=== PATIENT | female | born 1950 | race Caucasian/White ===

== ENCOUNTER → 2016-10-20 | Outpatient (CLI) | payer MEDICARE, BC ==
--- NOTE | 2016-10-20 16:51 | CONS ---
DATE OF CONSULTATION: REASON FOR CONSULTATION: LINOEdith Pan is 66, morbidly obese, with known history of obstructive sleep apnea with an AHI of 15 based on a previous polysomnogram that was done in 2011. The patient was treated with auto CPAP at a pressure minimum of 4, pressure maximum of 7, and she is coming in to see me. I have not seen this patient for almost 4 years. I noted that she has gained around 22 pounds since her last CPAP titration, and her body weight is up to 235. She is still using the same CPAP unit that was given to her earlier. She is utilizing a Damico FX extra-small mask, and her DME is [facility]. Based on the compliance data on the CPAP machine, the patient's average CPAP use is 8 hours and 56 minutes. Her AHI while on treatment is down to 3.6. Her P90 pressure is 6.7. She is going to bed at around midnight and wakes up around 7 a.m. in the morning. No snoring while on CPAP therapy. She still has some occasional nocturia. No major hypersomnia or sleepiness during the day. At times she is having some postnasal drainage, for which she is utilizing Flonase nasal spray. PAST MEDICAL HISTORY: 1. Obstructive sleep apnea, details as discussed above. 2. Obesity. 3. Hyperlipidemia. 4. Chronic back pain. 5. Degenerative arthritis. 6. Postnasal drainage, likely allergic, maintained on Flonase. Past surgical history includes: 1. . 2. Arthroscopic knee surgery. 3. Ankle surgery. 4. Wrist surgery. 5. Carpal tunnel release. 6. Cataract surgery. SOCIAL HISTORY: The patient is a nonsmoker. No history of alcohol. No history of IV drugs. Outpatient medication list includes: 1. Flonase nasal spray. 2. Baclofen. 3. Simvastatin. 4. Hydrocodone/acetaminophen 5/325. 5. Tramadol. FAMILY HISTORY: Negative for obstructive sleep apnea. REVIEW OF SYSTEMS: Twelve-point review of systems was done. Positive findings were all mentioned above in the history of present illness. BP is 154/58, pulse 70, respirations 16, temperature 97.0. Weight is 235. Height is 5 feet 2 inches. Neck size is 16-1/2 inches. Saturation 94% on room air. GENERAL APPEARANCE: Obese, calm, comfortable. HEENT: Short neck, crowding of posterior pharynx. No goiter or neck masses. LUNGS: Clear to auscultation. HEART: Sounds are regular rate and rhythm. Normal S1, S2. No S3. No S4. No murmurs. ABDOMEN: Soft, nontender. No organomegaly. EXTREMITIES: No edema. No cyanosis or clubbing. IMPRESSION: 1. Obstructive sleep apnea with a baseline AHI of 15 based on a sleep study from 2011. The patient is still receiving auto CPAP therapy with a pressure maximum of 7, pressure minimum of 4, and her treatment remains quite successful. 2. Obesity with a body mass index of 35.5. 3. Chronic degenerative arthritis with pain involving the knees, back, and various other large joints. 4. Hyperlipidemia. 5. Postnasal drainage, maintained on Flonase. PLAN: Treatment is successful. No need for adjustments on her CPAP pressure or settings at this point. Encourage weight loss. Encourage implementing good sleep hygiene measures. Tight control of cardiovascular risk factors. Renew her CPAP supplies. Suggest an AirFit P10 mask instead of the Damico FX. Continue Flonase for postnasal drainage. See me back in a year's time in followup; earlier if needed.
== END | disposition home or self-care (01) ==
LOC: SLEEP 14:02
PROVIDERS: ATTEND Internal Medicine Critical Care Medicine
DX: G47.33 Obstructive sleep apnea (adult) (pediatric) (principal); E66.9 Obesity, unspecified; Z68.35 Body mass index [BMI] 35.0-35.9, adult; M17.0 Bilateral primary osteoarthritis of knee; M47.896 Other spondylosis, lumbar region; G89.4 Chronic pain syndrome; M54.9 Dorsalgia, unspecified; E78.5 Hyperlipidemia, unspecified; R09.82 Postnasal drip; Z79.899 Other long term (current) drug therapy
CPT/HCPCS: 99211

== ENCOUNTER → 2017-12-14 | Outpatient (CLI) | payer MEDICARE, BC ==
--- NOTE | 2017-12-14 16:48 | PN ---
PROGRESS NOTE SLEEP CENTER PROGRESS NOTE: This is a pleasant 67-year-old female patient coming in for an annual check. The patient is using her CPAP machine. She is using a DreamWear nose mask. Her average use is around 6.8 hours per night. She is using it more than 4 hours every night. She is still waking up alert and awake during the day. She has no specific complaints other than her increased back pain and back spasms which have affected her ability to sleep, and she is waking up frequently for that reason. She has an upcoming appointment with Dr. Lancaster. She is still benefitting from the CPAP treatment. Her sleep apnea is mild to moderate in severity with an AHI of 15. No other new complaints otherwise for now. REVIEW OF SYSTEMS: CONSTITUTIONAL: Negative for any weight loss or weight gain. She has a good appetite. No fever, chills or night sweats. No dysuria, frequency or urgency. No nausea, vomiting or diarrhea. No heartburn. No chest pain. No palpitations. No shortness of breath. No falls. No change in memory. No concentration changes. No sleepwalking or sleeptalking. No parasomnias noted. She has chronic allergic rhinitis with nasal congestion, postnasal drainage. Increased back pain, as mentioned above. She will be seeking pain control. PHYSICAL EXAMINATION: BP is 157/74, pulse 78, respiration 16, temperature 97.6, saturation 96% on room air. Weight is 236. Height is 5 feet 2 inches. BMI is 43. GENERAL APPEARANCE: Calm, comfortable. No acute distress. Head is atraumatic, normocephalic. Neck is short. Crowding of the posterior pharynx. There is no goiter or neck masses. LUNGS: Clear to auscultation. HEART: Heart sounds are regular rate and rhythm. Normal S1, S2. No S3, S4. No murmurs. ABDOMEN: Soft, nontender. No organomegaly. EXTREMITIES: No edema. No cyanosis or clubbing. NEUROLOGIC: Alert and oriented x3. No focal neurological deficits. PSYCHIATRIC: Negative for anxiety or depression. SKIN: Negative for any wounds or ulceration. IMPRESSION: 1. Obstructive sleep apnea, moderate in severity with an AHI of 15. The patient continues to receive successful CPAP therapy. She is on an auto CPAP and her P90 pressure is 6.8. She is very compliant and she continues to benefit from the treatment. 2. Increased back pain/spasm. 3. Sleep fragmentation related to pain. 4. Obesity; stable weight with a BMI of 43. 5. Hyperlipidemia. 6. Degenerative arthritis. PLAN: 1. Renew the patient's CPAP supplies. 2. Continue CPAP at the same settings. 3. Treatment has been successful. 4. Follow up with Dr. Lancaster regarding back pain. 5. See me back in a year's time, earlier if needed. MMODL / IJN: [id number] /
== END ==
LOC: SLEEP 13:55
PROVIDERS: ATTEND Internal Medicine Critical Care Medicine
DX: Z53.9 Procedure and treatment not carried out, unspecified reason (principal)

== ENCOUNTER → 2018-02-15 | Outpatient (CLI) | payer MEDICARE, BC ==
--- NOTE | 2018-02-15 17:45 | PN ---
PROGRESS NOTE 67-year-old female patient coming to see me in followup. The patient was able to obtain a new CPAP machine. New CPAP machine is an APap which is set at admission minimum pressure of 4 and maximum pressure of 7. She is benefitting from the treatment and she is happy. However, she is still having some residual apneas. No major hypersomnia or sleepiness during the day and she claims to benefit from the treatment. However based on the compliance data, the patient is still having some residual apneas with an AHI of 11 while on treatment. Her leak factor is 14 L/minute. She is averaging 9 hours of APap use per night and her APap use for more than 4 hours is 100%. No recent weight gain or weight loss. No other complaints otherwise for now. REVIEW OF SYSTEMS: 12-point review of system was done. Positive findings are mentioned above in the history of present illness. PHYSICAL EXAMINATION: BP is 157/82, pulse 72, respirations 16, temperature 97.0. Weight is 240, temperature 97.9. General appearance: Calm and comfortable. Head is atraumatic, normocephalic. Neck short supple, crowding of posterior pharynx. There is no goiter or neck masses. LUNGS: Clear to auscultation. HEART: Sounds regular rate and rhythm. Normal S1, S2. No S3, S4. No murmurs. ABDOMEN: Soft, nontender. No organomegaly. EXTREMITIES: No edema. No cyanosis or clubbing. IMPRESSION: 1. Obstructive sleep apnea, moderate in severity. AHI of 15. Currently the patient has APap and she has demonstrated excellent clinical response and compliance. 2. Obesity with a BMI of 43. 3. Hyperlipidemia. 4. Degenerative arthritis. PLAN: 1. Increase APAP range to a minimum pressure of 4 and a maximum pressure of 12. 2. Monitor the AHI while in treatment and anticipate this number to drop below 5. 3. No evolution of central apneas based on the compliance data. 4. The patient is benefitting from the CPAP. 5. Encourage weight loss. 6. See me back in a few months' time for a followup. MMROSASL / BRYCEN: [id number] /
== END | disposition home or self-care (01) ==
LOC: SLEEP 14:11
PROVIDERS: ATTEND Internal Medicine Critical Care Medicine
DX: G47.33 Obstructive sleep apnea (adult) (pediatric) (principal); E66.9 Obesity, unspecified; E78.5 Hyperlipidemia, unspecified; M19.90 Unspecified osteoarthritis, unspecified site; Z99.89 Dependence on other enabling machines and devices; Z68.41 Body mass index [BMI] 40.0-44.9, adult

== ENCOUNTER → 2019-03-07 | Outpatient (CLI) | payer MEDICARE, BC ==
--- NOTE | 2019-03-07 20:00 | PN ---
PROGRESS NOTE 68-year-old female patient coming in for a compliancy check in followup regarding LINO treatment. The patient has moderate to severe LINO with an AHI of 15 and currently she is on APAP, minimum pressure 4, maximum pressure of 12. On today's evaluation, the patient continues to use her CPAP without any interruption. She has been averaging around 9.7 hours of CPAP use per night. She is leaking 19 L/minute and her AHI is down to 4.5, without any central apneas noted. Her treatment has been essentially successful. The average pressure utilized is around 10 cm of water. The patient's [place] score is down to 7. She has no specific complaints. She is utilizing CPAP machine without any interruption and she has not gained any weight. REVIEW OF SYSTEMS: Fourteen-point review of system was done and positive findings are mentioned above history of present illness. PHYSICAL EXAMINATION: BP is 126/79, pulse 78, respirations 16, temperature 97.0. Saturation 93% on room air. Height is 5 feet 2 inches, weight is 243, BMI 44.6. General appearance: Calm, comfortable. HEENT: Head is atraumatic, normocephalic. NECK: Supple. No JVD. No goiter or neck masses. LUNGS: Clear to auscultation. HEART: Sounds are regular rate and rhythm. Normal S1, S2. No murmurs. ABDOMEN: Soft, nontender. No organomegaly. EXTREMITIES: No edema. No cyanosis or clubbing. NEUROLOGIC: Alert and oriented x3. No focal neurological deficits. IMPRESSION: 1. Obstructive sleep apnea with an AHI of 15 currently on a APAP minimum of 4, maximum 12 with excellent clinical response and compliance. 2. Obesity with a BMI of 44.6. 3. Hypersomnia, recovered. 4. Hyperlipidemia. 5. Osteoarthritis. PLAN: 1. Continue APAP at the same setting. 2. Keep same mask interface. 3. Treatment is successful, see me back in a year's time in follow up, earlier if needed. MMODL / IJN: [id number] /
== END ==
LOC: SLEEP 14:53
PROVIDERS: ATTEND Internal Medicine Critical Care Medicine
DX: G47.33 Obstructive sleep apnea (adult) (pediatric) (principal); E66.9 Obesity, unspecified; E78.5 Hyperlipidemia, unspecified; M19.90 Unspecified osteoarthritis, unspecified site; Z99.89 Dependence on other enabling machines and devices; Z68.41 Body mass index [BMI] 40.0-44.9, adult

== ENCOUNTER → 2020-10-22 | Outpatient (CLI) | payer MEDICARE, BC ==
--- NOTE | 2020-10-22 15:00 | PN ---
PROGRESS NOTE This patient is 70 coming in for a 2 year followup regarding her obstructive sleep apnea. The patient has a moderately severe disease with an AHI of 15 and the patient is currently on an APAP, at a minimum pressure of 4 and maximum pressure of 12. Treatment remains extremely successful and the patient is very compliant to her treatment. She is going to bed and she takes sometimes little bit longer than an hour to fall asleep as the patient has significant amount of arthritis and she has difficulties in getting herself comfortable and situated. Ultimately, she has been averaging around 11 hours of CPAP use per night. She thinks that effectively she is sleeping somewhere between 8-9 hours. Her leak is in order of 6 L/minute and her AHI while on treatment is down to 3.0. Her CPAP use for more than 4 hours is 100%. She has been taking occasional naps during the day and she wears her CPAP during naps. She is using a DreamWear small-sized under the nose mask. Humidity level is 4. The patient has a ClimateLine. Weight is stable and is currently at 247. REVIEW OF SYSTEMS: Fourteen-point review of system was done and positive findings are mentioned in history of present illness. PHYSICAL EXAMINATION: VITAL SIGNS: BP is 141/69, pulse 68, respirations 16, temperature 98.2, saturation 95% on room air. Height is 5 feet 2 inches. Weight is 247. GENERAL APPEARANCE: Calm, comfortable. HEAD: Atraumatic, normocephalic. NECK: Supple. No JVD. No thrush. No goiter or neck masses. LUNGS: Clear to auscultation. No wheeze or rhonchi. HEART: Sounds are regular rate and rhythm. Normal S1, S2. No S3, no S4. No murmurs. ABDOMEN: Soft, nontender. No organomegaly. EXTREMITIES: No edema. No cyanosis or clubbing. IMPRESSION: 1. Obstructive sleep apnea, mild to moderate in severity AHI of 15, currently on APAP and treatment continues to be extremely successful. 2. Hypersomnia, recovered. 3. Obesity with a body mass index of 45.1 and a body weight of 247. 4. Degenerative arthritis. 5. Hyperlipidemia. PLAN: 1. Keep same pressure setting. 2. Continue same mask interface and the patient will refill on her DreamWear small- sized under the nose mask. 3. Continue optimizing sleep hygiene measures. 4. Continue pain control, especially her arthritic pain and the patient is taking pain killers including tramadol and baclofen. 5. See me back in the office in a year's time for followup for now her treatment is still successful. MMMATTEO / BRYCEN: [id number] /
== END | disposition home or self-care (01) ==
LOC: SLEEP 13:24
PROVIDERS: ATTEND Internal Medicine Critical Care Medicine
DX: G47.33 Obstructive sleep apnea (adult) (pediatric) (principal); M19.90 Unspecified osteoarthritis, unspecified site; E78.5 Hyperlipidemia, unspecified; E66.9 Obesity, unspecified; Z68.42 Body mass index [BMI] 45.0-49.9, adult; Z99.89 Dependence on other enabling machines and devices

== ENCOUNTER → 2022-03-10 | Outpatient (CLI) | payer MEDICARE, BC ==
--- NOTE | 2022-03-10 16:10 | P.PN ---
Subjective Progress Note Date: 03/10/22 A 71-year-old here patient coming in for an annual checkup regarding her obstructive sleep apnea. The patient is known to have moderately severe disease with an AHI of 15. The patient is currently using an APAP unit, and she has a ResMed 10 which is set at the pressure minimal 4 and a maximum of 15 , she is using a alegria fx Soren extra small size. She's been extremely compliant. She has issues with chronic pain. She takes a combination of tramadol and baclofen for pain control and arthritis. She has lost around 7 pounds since her last evaluation and current weight is down to 240. She takes hypertension medication and she was started on lisinopril recently. In terms of her CPAP compliantly, the patient has been very compliant is utilizing her machine every night. She has been averaging on 9.7 hours of CPAP use per night, and average pressure delivered vitamin she is around 9 cm of water. Her leak is in order of 22 L per minute. Her AHI while on treatment is down to 4.4. She is still having successful treatment. No issues while on the CPAP. Her main issues are arthritic pain and discomfort that she gets uncomfortable at night and she cannot get herself into a comfortable bela position. Nevertheless, for the most part, her sleep apnea as well treated and she is waking up refreshed and alert during the day. Objective - Exam BP is 127/72 with a pulse of 71 and respiration of 20 and the temperature 96.0 and the weight is 240 pounds with a body mass index of 44. The [place] score is at 11. Gen. appearance the patient is morbidly obese, comfortable likely distress The patient appeared well nourished and normally developed. Vital signs as documented. Head exam is unremarkable. No scleral icterus or corneal arcus noted. Neck is without jugular venous distension, thyromegaly, or carotid bruits. The patient has a Mallampati class IV. Carotid upstrokes are brisk bilaterally. Lungs are clear to auscultation and percussion. Cardiac exam reveals the PMI to be normally sized and situated. Rhythm is regular. First and second heart sounds normal. No murmurs, rubs or gallops. Abdominal exam reveals normal bowel sounds, no masses, no organomegaly and no aortic enlargement. Extremities are nonedematous and both femoral and pedal pulses are normal.Examination of the skin revealed no evidence of significant rashes, suspicious appearing nevi or other concerning lesions.Neurologically, the patient is awake and alert and the patient does not have any focal neurological deficit. Cranial nerves are essentially intact. Assessment and Plan Plan: Obstructive sleep apnea, AHI 15 and the patient has been adequately treated with APAP and the patient continues to be successfully treated for now Hypersomnia, currently inactive in stable Chronic arthritic pain maintained on a combination of tramadol and baclofen Hypertension Hyperlipidemia Morbid obesity with a body mass index of 44 Plan Keep the patient on a APAP mode pressure minimum of 4 and a maximal 15 Ordered the patient is alegria fx soren extra small nasal pillow Encourage further weight loss Compliance he was checked Maintain regular sleep schedule Avoid taking naps during the day Keep the same pain medications See him back in a year's time in follow-up
== END ==
LOC: SLEEP 15:35
PROVIDERS: ATTEND Internal Medicine Critical Care Medicine
DX: G47.33 Obstructive sleep apnea (adult) (pediatric) (principal); M13.80 Other specified arthritis, unspecified site; I10 Essential (primary) hypertension; E78.5 Hyperlipidemia, unspecified; E66.01 Morbid (severe) obesity due to excess calories; Z68.41 Body mass index [BMI] 40.0-44.9, adult; Z79.899 Other long term (current) drug therapy

== ENCOUNTER 2022-08-08 05:48 | Emergency (ER) | payer MEDICARE, BC ==
[2022-08-08 06:02] VITALS: TEMP 97.9
[2022-08-08] MEDS ORDERED: SODIUM CHLORIDE 0.9% 1,000 ML IV STA (06:04)
[2022-08-08] MEDS ORDERED: KETOROLAC 15 MG/ML 1 ML VIAL IVP STA (06:24)
[2022-08-08] MEDS ORDERED: traMADol-ACETAMINOP 37.5-325MG 1 EACH TAB PO STA (06:24)
[2022-08-08] MEDS ORDERED: BACLOFEN 10 MG TAB PO STA (06:25)
--- NOTE | 2022-08-08 06:44 | ED ---
Abdominal Pain HPI - General Chief Complaint: Abdominal Pain Stated Complaint: ABD Pain Time Seen by Provider: 08/08/22 06:04 Source: patient, RN notes reviewed Mode of arrival: ambulatory Limitations: no limitations - History of Present Illness Initial Comments: This a 72-year-old female presents emergency Department chief complaint left flank pain. Patient states started her yesterday has worsened but did have some symptoms are very mild on and off for last few days. Patient states that she has noticed urinary frequency and which she normally gets up 2-3 times a night but states that she's been given 5-6 times a day now. Patient denies any fever but states that she's had chills, slight nausea without vomiting denies any trauma pain is not worse movement states does wax and wane no history kidney stones. Patient denies chest pain, shortness breath no rashes noted. - Related Data Home Medications Medication Instructions Recorded Confirmed Baclofen 10 mg PO HS 01/22/16 01/22/16 Cholecalciferol [Vitamin D3] 1,000 unit PO DAILY 01/22/16 01/22/16 Docusate [Colace] 100 mg PO DAILY 01/22/16 01/22/16 Fluticasone Nasal [place] [Flonase 2 sprays EA NOSTRIL DAILY 01/22/16 01/22/16 Nasal Bar[place]] HYDROcodone/APAP 5-325MG [[place] 1 tab PO DAILY PRN 01/22/16 01/22/16 5-325] Omeprazole [PriLOSEC] 20 mg PO AC-BRKFST 01/22/16 01/22/16 Simvastatin [Zocor] 40 mg PO HS 01/22/16 01/22/16 traMADol HCL/ACETAMINOPHEN 2 tab PO Q8HR PRN 01/22/16 01/22/16 [Ultracet 37.5-325] Previous Rx's Medication Instructions Recorded Ketorolac [Toradol] 10 mg PO Q8HR #15 tab 08/08/22 Ondansetron Odt [Zofran Odt] 4 mg PO Q8HR PRN #10 tab 08/08/22 Allergies Allergy/AdvReac Type Severity Reaction Status Date / Time No Known Allergies Allergy Verified 01/22/16 12:25 Review of Systems ROS Statement: Those systems with pertinent positive or pertinent negative responses have been documented in the HPI. ROS Other: All systems not noted in ROS Statement are negative. Past Medical History Past Medical History: Fibromyalgia Additional Past Medical History / Comment(s): arthritis, neuropathy, back pain History of Any Multi-Drug Resistant Organisms: None Reported Past Surgical History: Section Past Psychological History: No Psychological Hx Reported Smoking Status: Never smoker Past Alcohol Use History: None Reported Past Drug Use History: None Reported General Exam Limitations: no limitations General appearance: alert, in no apparent distress Head exam: Present: atraumatic, normocephalic, normal inspection Eye exam: Present: normal appearance, PERRL, EOMI. Absent: scleral icterus, conjunctival injection, periorbital swelling ENT exam: Present: normal exam, normal oropharynx, mucous membranes moist Neck exam: Present: normal inspection, full ROM. Absent: tenderness, meningismus, lymphadenopathy Respiratory exam: Present: normal lung sounds bilaterally. Absent: respiratory distress, wheezes, rales, rhonchi, stridor Cardiovascular Exam: Present: regular rate, normal rhythm, normal heart sounds. Absent: systolic murmur, diastolic murmur, rubs, gallop, clicks GI/Abdominal exam: Present: soft, normal bowel sounds. Absent: distended, tenderness, guarding, rebound, rigid Back exam: Present: CVA tenderness (L). Absent: CVA tenderness (R) Neurological exam: Present: alert Skin exam: Present: warm, dry, intact, normal color. Absent: rash Course Vital Signs 08/08/22 08/08/22 05:56 08:00 Temperature 97.9 F Pulse Rate 101 H 80 Respiratory 18 15 Rate Blood Pressure 174/83 139/82 O2 Sat by Pulse 95 100 Oximetry Medical Decision Making - Medical Decision Making 72 a female presents emergency department for evaluation of flank pain. Patient has 3 mm distal ureteral stone. Patient's pain is improved. Patient discharged in stable. She'll follow-up urology return parameters were discussed. - Lab Data Result diagrams: 08/08/22 06:14 Lab Results 08/08/22 08/08/22 Range/Units 06:14 06:24 WBC 10.5 (3.8-10.6) k/uL RBC 4.67 (3.80-5.40) m/uL Hgb 13.2 (11.4-16.0) gm/dL Hct 41.0 (34.0-46.0) % MCV 87.7 (80.0-100.0) fL MCH 28.3 (25.0-35.0) pg MCHC 32.2 (31.0-37.0) g/dL RDW 13.7 (11.5-15.5) % Plt Count 273 (150-450) k/uL MPV 8.6 Neutrophils % 76 % Lymphocytes % 19 % Monocytes % 4 % Eosinophils % 1 % Basophils % 0 % Neutrophils # 8.0 H (1.3-7.7) k/uL Lymphocytes # 1.9 (1.0-4.8) k/uL Monocytes # 0.4 (0-1.0) k/uL Eosinophils # 0.1 (0-0.7) k/uL Basophils # 0.0 (0-0.2) k/uL Hypochromasia Slight Urine Color Yellow Urine Appearance Cloudy H (Clear) Urine pH 5.0 (5.0-8.0) Ur Specific [place] 1.022 (1.001-1.035) Urine Protein 1+ H (Negative) Urine Glucose (UA) Negative (Negative) Urine Ketones Negative (Negative) Urine Blood Moderate H (Negative) Urine Nitrite Negative (Negative) Urine Bilirubin Negative (Negative) Urine Urobilinogen <2.0 (<2.0) mg/dL Ur Leukocyte Esterase Negative (Negative) Urine RBC 33 H (0-5) /hpf Urine WBC 5 (0-5) /hpf Ur Squamous Epith Cells 4 (0-4) /hpf Urine Bacteria Rare H (None) /hpf Hyaline Casts 5 H (0-2) /lpf Urine Mucus Occasional H (None) /hpf Disposition Clinical Impression: Left ureteral calculus Disposition: HOME SELF-CARE Condition: Stable Instructions (If sedation given, give patient instructions): Kidney Stones (ED) Additional Instructions: Please return to the Emergency Department if symptoms worsen or any other concerns. Prescriptions: Ketorolac [Toradol] 10 mg PO Q8HR #15 tab Ondansetron Odt [Zofran Odt] 4 mg PO Q8HR PRN #10 tab PRN Reason: Nausea Is patient prescribed a controlled substance at d/c from ED?: No Referrals: Junaid Marinelli MD [Primary Care Provider] - 1-2 days Tyrone Ruggiero MD [STAFF PHYSICIAN] - 1-2 days Time of Disposition: 08:22
[2022-08-08 07:08] LABS: Appearance,Urine Cloudy (Clear); Bacteria,Urine Rare /hpf; Bilirubin,Urine Negative (Negative); Blood,Urine Moderate (Negative); Color,Urine Yellow; Glucose,Urine (UA) Negative (Negative); Hyaline Casts,Urine 5 /lpf (0-2); Ketones,Urine Negative (Negative); Leukocyte Esterase,Urine Negative (Negative); Mucus,Urine Occasional /hpf; Nitrite,Urine Negative (Negative); Protein,Urine 1+ (Negative); RBC,Urine 33 /hpf (0-5); Specific Gravity,Urine 1.022 (1.001-1.035); Squamous Epithelial Cell,Urine 4 /hpf (0-4); Urobilinogen,Urine <2.0 mg/dL (<2.0); WBC,Urine 5 /hpf (0-5)
[2022-08-08 07:37] LABS: Basophils % (A) 0 %; Eosinophils # (A) 0.1 k/uL (0-0.7); Eosinophils % (A) 1 %; HGB 13.2 gm/dL (11.4-16.0); Hypochromasia Slight; Lymphocytes # (A) 1.9 k/uL (1.0-4.8); Lymphocytes % (A) 19 %; MCH 28.3 pg (25.0-35.0); MCHC 32.2 g/dL (31.0-37.0); MCV 87.7 fL (80.0-100.0); Mean Platelet Volume 8.6; Monocytes # (A) 0.4 k/uL (0-1.0); Monocytes % (A) 4 %; Neutrophils % (A) 76 %; Platelet Count 273 k/uL (150-450); RBC 4.67 m/uL (3.80-5.40); RDW 13.7 % (11.5-15.5); WBC 10.5 k/uL (3.8-10.6)
[2022-08-08 08:01] VITALS: BP 139/82; PULSE 80; RESP 15
[2022-08-08 08:03] LABS: ALT 20 U/L (4-34); African American GFR (CKD) >90 (>60 ml/min/1.73 sqM); Albumin 4.7 g/dL (3.5-5.0); Amylase 50 U/L (30-110); Anion Gap 15 mmol/L; Blood Urea Nitrogen 18 mg/dL (7-17); Calcium 9.3 mg/dL (8.4-10.2); Carbon Dioxide 20 mmol/L (22-30); Chloride 101 mmol/L (98-107); Glucose 146 mg/dL (74-99); Lipase 36 U/L (23-300); Non-African American GFR(CKD) 87 (>60 ml/min/1.73 sqM); Sodium 136 mmol/L (137-145); Total Bilirubin 0.6 mg/dL (0.2-1.3); Total Protein 7.8 g/dL (6.3-8.2)
--- NOTE | 2022-08-08 08:09 | CT ---
EXAMINATION TYPE: CT abdomen pelvis wo con DATE OF EXAM: 08/08/2022 COMPARISON: None INDICATION: left flank pain DLP: 1469.4 mGycm, Automated exposure control for dose reduction was used. CONTRAST: 0 mL of Isovue 300. Study performed without Oral Contrast TECHNIQUE: Axial images were obtained from above the diaphragm to the pubic rami in the axial plane a t 5 mm thick sections. Reconstructed images are reviewed on the computer in the coronal plane. FINDINGS: Limited CT sections are obtained the lung bases. There are a couple of calcifications at the posteri or pleural margin left lung base. CT ABDOMEN: Liver: Normal Spleen: Normal Pancreas: Diffuse fatty infiltration within the pancreas. Adrenal glands: The adrenal glands are normal. Gallbladder: Normal Kidneys: No masses are evident. No hydronephrosis is present. No cysts are present. Some mild mauro nephric stranding may be present on the left. Minimal prominence of the left ureter is present. At the distal left ureter there is a 0.3 cm calcification. Distal ureteral stone is suspected Aorta: Vascular calcification is within the aorta. Inferior vena cava: Normal. CT PELVIS: Loops of bowel within the abdomen and pelvis are normal. The studies lateral contrast limiting steven wel evaluation. Multiple diverticuli are within the sigmoid colon. Appendix: Not visualized. No dilated tubular structure or inflammatory change is evident. Urinary bladder: Decompressed with limited evaluation. Genitourinary structures: Uterus appears normal. Adnexa are unremarkable Osseous structures: No suspicious lytic or sclerotic lesions. Degenerative changes are at the right h ip. Some facet changes are within the lumbar spine IMPRESSIONS: 1. 0.3 cm minimally obstructing distal left ureteral vesicle junction stone. 2. Diverticulosis without acute diverticulitis.
[2022-08-08] MEDS ORDERED: ACET/COD 300 MG/30 MG STARTER PACK 6 TAB BTL PO STA (08:20)
[2022-08-08 08:40] LABS: AST 33 U/L (14-36); Alkaline Phosphatase 88 U/L (38-126)
== END 2022-08-08 08:45 | disposition home or self-care (01) ==
LOC: EC 05:48
DX: N20.1 Calculus of ureter (principal); Z79.899 Other long term (current) drug therapy
CPT/HCPCS: 36415; 80053; 82150; 83605; 83690; 85025; 81001; 74176; 99284; 96374; 96361 ×2; J1885

== ENCOUNTER → 2023-03-02 | Outpatient (CLI) | payer MEDICARE, BC ==
--- NOTE | 2023-03-02 16:44 | P.PN ---
Progress Note - Text Progress Note Date: 03/02/23 72-year-old female patient coming in for regular annual check regarding her obstructive sleep apnea. The patient is known to have LINO with an HIV 15 and she continues to receive successful CPAP therapy. The patient remains on APAP mode pressures of 4/15 cm of water and she is using the Damico fx soren nasal mask, extra small. No major change in her body weight. She is currently weight 243 pounds. She is averaging around 9 hours of CPAP use per night. Her usage of the machine for more than 4 hours is at 100%. Had AHI is down to 5.1 and average pressure delivered by the machines around 10.2 cm of water. She has chronic arthritis pH is quite debilitated. She is moving around without a walker and she has a motorized scooter. No major hypersomnia or sleepiness during the day. BP is 141/78 with a pulse of 69 and the respiration of 12 and a temperature of 96.8 and body medicine except 44.4 and the weight is 243 The patient appeared well nourished and normally developed. Vital signs as documented. Head exam is unremarkable. No scleral icterus or corneal arcus noted. Neck is without jugular venous distension, thyromegaly, or carotid bruits. Carotid upstrokes are brisk bilaterally. Lungs are clear to auscultation and percussion. Cardiac exam reveals the PMI to be normally sized and situated. Rhythm is regular. First and second heart sounds normal. No murmurs, rubs or gallops. Abdominal exam reveals normal bowel sounds, no masses, no organomegaly and no aortic enlargement. Extremities are nonedematous and both femoral and pedal pulses are normal.Examination of the skin revealed no evidence of significant rashes, suspicious appearing nevi or other concerning lesions. Mobility is affected and the patient is unable to ambulate adequately and the patient is using a motorized scooter for now. Assessment Symptomatic LINO an AHI 15, undergoing a successful APAP therapy pressures of 4/15 cm of water Chronic degenerative arthritis Hypertension Hyperlipidemia Morbid obesity with a BMI of 44 Plan Adequate pain control with tramadol and baclofen Weight loss Continue CPAP therapy the same pressure settings Refill supplies Seen back in one year
== END ==
LOC: SLEEP 14:49
PROVIDERS: ATTEND Internal Medicine Critical Care Medicine
DX: G47.33 Obstructive sleep apnea (adult) (pediatric) (principal); M19.90 Unspecified osteoarthritis, unspecified site; I10 Essential (primary) hypertension; E78.5 Hyperlipidemia, unspecified; E66.01 Morbid (severe) obesity due to excess calories; Z68.41 Body mass index [BMI] 40.0-44.9, adult
CPT/HCPCS: 99212

== ENCOUNTER → 2023-06-21 | Outpatient (CLI) | payer MEDICARE, BC ==
--- NOTE | 2023-06-22 08:02 | XR ---
EXAMINATION TYPE: XR thoracic spine 2V DATE OF EXAM: 06/21/2023 CLINICAL HISTORY: pain TECHNIQUE: Frontal, lateral, and swimmer's view of thoracic spine are obtained. COMPARISON: None. FINDINGS: Thoracic spine show satisfactory alignment without evidence of acute fracture or dislocatio n. Vertebral body heights are preserved. Moderate multilevel degenerative disc space narrowing with ventral spondylosis. Visualized ribs are unremarkable. IMPRESSION: No acute fracture or dislocation is seen in the thoracic spine. ICD 10 NO FRACTURE, INIT IAL EVALUATION
--- NOTE | 2023-06-22 08:04 | XR ---
EXAMINATION TYPE: XR lumbosacral spine min 4V DATE OF EXAM: 06/21/2023 CLINICAL HISTORY: pain COMPARISON: NONE TECHNIQUE: Frontal, lateral, and oblique images of the lumbar spine are obtained. FINDINGS: There are 5 lumbar type vertebral bodies identified. The lumbar spine shows satisfactory alignment without evidence of acute fracture or dislocation. Vertebral body heights are within normal limits. Moderate multilevel degenerative disc space narrowing and ventral spondylosis. Severe facet joint arthropathy. The overlying soft tissue appears unremarkable. IMPRESSION: No acute fracture or dislocation is seen in the lumbar spine.ICD 10 NO FRACTURE, INITIAL EVALUATION
--- NOTE | 2023-06-22 08:05 | XR ---
EXAMINATION TYPE: XR cervical spine comp DATE OF EXAM: 06/21/2023 CLINICAL HISTORY: pain COMPARISON: NONE TECHNIQUE: Frontal, lateral, oblique, swimmers, and open mouth view of the cervical spine are obtaine d. FINDINGS: The cervical spine is visualized in its entirety from C1 thru the top of T1 level. It is s atisfactory in alignment without evidence of acute fracture or dislocation. The pre-vertebral soft t issue appears within normal limits. Moderate to severe multilevel degenerative disc space narrowing a nd ventral spondylosis. The C1-C2 articulation is unremarkable on the open mouth view. Neural foramin al encroachment seen bilaterally extends from C3-4 through C6-7. IMPRESSION: No acute fracture or dislocation is seen in the cervical spine.ICD 10 NO FRACTURE, INITI AL EVALUATION
--- NOTE | 2023-06-22 08:09 | XR ---
EXAMINATION TYPE: XR knee 4V bilateral DATE OF EXAM: 06/21/2023 CLINICAL HISTORY: pain TECHNIQUE: 4 views of the bilateral knees are submitted. COMPARISON: None. FINDINGS: There is no acute fracture/dislocation. The tri-compartment joint spaces appear mildly na rrowed involving the medial tibiofemoral joint spaces bilaterally. There is mild intracondylar spur f ormation as well as spurring about the right superior patellar pole. The overlying soft tissue appear s unremarkable. IMPRESSION: There is no acute fracture or dislocation.ICD 10 NO FRACTURE, INITIAL EVALUATION
== END | disposition home or self-care (01) ==
LOC: RADXRMAIN 14:16
PROVIDERS: ATTEND Psychiatry & Neurology Neurology
DX: M25.562 Pain in left knee (principal); M25.561 Pain in right knee; M54.2 Cervicalgia; M54.6 Pain in thoracic spine; M54.50 Low back pain, unspecified
CPT/HCPCS: 72050; 72070; 72110

== ENCOUNTER → 2025-01-15 | Outpatient (CLI) | payer MEDICARE, BC ==
--- NOTE | 2025-01-15 14:01 | CT ---
EXAMINATION TYPE: CT sinus wo con CT DLP: 632.5 mGycm, Automated exposure control for dose reduction was used. DATE OF EXAM: 01/15/2025 1:46 PM COMPARISON: None. CLINICAL INDICATION:Female, 74 years old with history of J32.9 CHRONIC SINUSITIS; PHH, SINUSITIS CONTRAST: None. TECHNIQUE: Multiple thin axial images were obtained through the paranasal sinuses without the use of IV contrast. Additional coronal and sagittal reformatted images were submitted for evaluation. FINDINGS: Frontal sinuses: Normally developed and aerated. Frontal Recess: Clear Maxillary Sinuses: Normally developed. Right inferior maxillary sinus 1 cm mucous retention cyst. The re are 2 left inferior maxillary sinus subcentimeter mucous retention cyst. The maxillary sinuses are otherwise clear. Maxillary Infundibula([facility]): Clear, No Barbi cells identified. Ethmoid sinuses: Normally developed. The right is entirely clear. Minimal mucosal thickening of the l eft anterior ethmoid air cell. Ethmoidal notch: Protected and abutting the lateral lamina. Sphenoid sinuses: Normally developed and aerated. There is sellar sphenoid sinus pneumatization witho ut evidence of dehiscence. No dehiscence of carotid canal. No evidence of optic nerve dehiscence wit hin the sphenoid sinus. No evidence of Onodi cells. Sphenoethmoidal recesses: Clear. Nasal septum: No significant deviation. Left-sided septal spur. Nasal Turbinates: Within normal limits. Mastoid air cells & middle ears: The air cells are clear. The middle ears are grossly unremarkable. Modified Soft tissues & Brain: Partially seen without gross abnormality. Bilateral aphakia. Hyperosto sis frontalis. Other: Cribriform plate demonstrates asymmetric Keros classification type 2 cribriform plate. No evidence of bony dehiscence of skull base. Lamina papyracea is intact without evidence of remote orbital fracture or orbital prolapse into the e thmoid sinus. Pneumatization of the dhiraj gris. IMPRESSION: 1. No significant mucosal sinus disease. Few small bilateral maxillary sinus mucous retention cysts. 2. The ostiomeatal units, frontonasal and sphenoethmoidal recesses are clear. [facility], , 01/15/2025 1:58 PM
[2025-01-15 19:18] LABS: Immunoglobulin E <5.00 IU/mL (0.00-114.00)
[2025-01-16 03:37] LABS: Alternaria alternata IgE <0.10 kU/L; Aspergillus fumagatus IgE <0.10 kU/L; Birch IgE <0.10 kU/L; Cat Epith & Dander IgE <0.10 kU/L; Cladosporian herbarum IgE <0.10 kU/L; Cockroach IgE <0.10 kU/L; Ragweed,Common IgE <0.10 kU/L
[2025-01-16 03:38] LABS: Dermato. farinae IgE <0.10 kU/L; Dog Dander IgE <0.10 kU/L; Maple (Box Elder) IgE <0.10 kU/L; Oak IgE <0.10 kU/L
[2025-01-17 05:00] LABS: Aureo. pullulans IgE <0.10 kU/L (<0.10); Aureo. pullulans IgE Class CLASS 0; Candida albicans IgE Class CLASS 0; Com. Pigweed IgE <0.10 kU/L (<0.10); Com. Pigweed IgE Class CLASS 0; Cottonwood IgE <0.10 kU/L (<0.10); English Plantain IgE Class CLASS 0; Epicoccum purpurascens Class CLASS 0; Epicoccum purpurascens IgE <0.10 kU/L (<0.10); Johnson Grass IgE Class CLASS 0; Lamb's Quarter IgE <0.10 kU/L (<0.10); Lamb's Quarter IgE Class CLASS 0; Mucor racemosus IgE <0.10 kU/L (<0.10); Mucor racemosus IgE Class CLASS 0; Rhizopus nigricans IgE <0.10 kU/L (<0.10); Rhizopus nigricans IgE Class CLASS 0; S.rostrata/Helminth Class CLASS 0; S.rostrata/Helminth IgE <0.10 kU/L (<0.10); Sycamore(Mpl.Lf) IgE <0.10 kU/L (<0.10); Sycamore(Mpl.Lf) IgE Class CLASS 0; Timothy Grass IgE <0.10 kU/L (<0.10); Timothy Grass IgE Class CLASS 0; Walnut Tree IgE <0.10 kU/L (<0.10); Walnut Tree IgE Class CLASS 0; White Ash IgE Class CLASS 0
== END | disposition home or self-care (01) ==
LOC: RADCTMAIN 13:20
PROVIDERS: ATTEND Otolaryngology
DX: J32.0 Chronic maxillary sinusitis (principal); J34.1 Cyst and mucocele of nose and nasal sinus; J30.89 Other allergic rhinitis
CPT/HCPCS: 70486; 82785; 86003

== ENCOUNTER → 2025-05-01 | Outpatient (CLI) | payer MEDICARE, BC ==
--- NOTE | 2025-05-21 20:54 | P.PCN ---
Date of Procedure: 05/01/25 Operative Findings: Home sleep study report Date of service is 05/01/2025 History This is a 75-year-old female patient with known history of obstructive sleep apnea originally diagnosed back in 2013 with an AHI of 15 worse during REM sleep. The patient was treated with CPAP at a pressures of 4/15 cm of water and over the years her treatment has been successful. Over the past 6 months, the patient was having difficulties in tolerating her CPAP unit. She had excessive sinus pain, burning sensation, headaches, migraines and her CPAP company fragmented and she was also having difficulties initiating and maintaining sleep. She is currently on Topamax and she is being followed by neurology. During her last visit, I changed her from an APAP mode to a CPAP moderate pressure of 12 cm of water and she stated that she has been able to tolerate the treatment. I subsequently lowered the CPAP pressure down to 9 cm of water and later on to 7 cm of water and the patient was unable to tolerate the pressures due to same problems. The patient accordingly was taken off CPAP therapy. A home sleep study was ordered to reevaluate the presence and severity of sleep apnea. Pertinent physical findings The patient has an Sorrento score of 11. Her weight is 200 pounds and the height is 5 feet and 2 inches. Technical description The [employer] ApneaLink system was used to complete his home sleep study. This is a type III home sleep study evaluation. The total recording duration was 10 hours and 49 minutes. The study started at 8:38 PM and ended at 7:28 AM. There was a total of 10 hours and 35 minutes of flow monitoring and 10 hours and 33 minutes of oxygen saturation monitoring. Results Respiratory analysis showed a total of 78 obstructive apneas and 79 obstructive hypopneas. The resulting AHI was 14.8 Oxygenation analysis The baseline pulse ox while awake was 96%, average pulse ox during sleep was 94% and the minimum pulse ox of 75% and the patient spent approximately 12 minutes of sleep time below pulse ox of 89% Cardiac summary Average heart rate was 63 with a minimum heart rate of 49 and a maximum heart rate of 106 Assessment Mild obstructive sleep apnea with an AHI of 14.8. Disease severity has been unchanged since 2013. Unable to tolerate CPAP therapy at this point. Various comorbidities as discussed above Plan Will discuss findings with the patient. Will hold off CPAP therapy for now. Implement conservative measures. The patient is to be followed up by neurology and ENT
== END ==
LOC: 3 N SLEEP 17:47
PROVIDERS: ATTEND Internal Medicine Critical Care Medicine